=== PATIENT | male | born 1980 | race Caucasian/White ===

== ENCOUNTER → 2019-05-24 | Outpatient (CLI) | payer OTHER ==
--- NOTE | 2019-05-24 13:06 | KCIC ---
LUMBAR SPINE WO CONTRAST History: Low back pain. Radiculopathy. Right leg weakness. Technique: Multiplanar, multi sequential MR imaging was performed of the lumbar spine. Comparison: None Findings: Normal vertebral body height and alignment. No fracture. No pathologic marrow replacing process. Conus terminates at the normal location. No evidence of nerve root clumping. L1-L2: No canal or neuroforaminal narrowing. L2-L3: Mild facet arthropathy. No canal or neuroforaminal narrowing. L3-L4: No canal or neuroforaminal narrowing. Mild facet arthropathy. L4-L5: Small posterior disc bulge. Moderate facet arthropathy. No canal narrowing. No neuroforaminal narrowing. L5-S1: Broad-based posterior disc bulge. Superimposed right foraminal disc protrusion. No canal narrowing. Moderate right and mild left neural foraminal narrowing. Impression: 1. Mild multilevel lumbar spondylosis most prominent L5-S1. 2. Moderate right L5-S1 neural foraminal narrowing. Correlate for radiculopathy. Electronically signed by: Kamaljit Coates DO (05/24/2019 1:03 PM) [email or web address]
== END | disposition home or self-care (01) ==
LOC: KCIC MRI 09:50
PROVIDERS: ATTEND Family Medicine
DX: M47.26 Other spondylosis with radiculopathy, lumbar region (principal); M47.818 Spondylosis without myelopathy or radiculopathy, sacral and sacrococcygeal region; M48.07 Spinal stenosis, lumbosacral region; M51.16 Intervertebral disc disorders with radiculopathy, lumbar region; M53.3 Sacrococcygeal disorders, not elsewhere classified; M46.86 Other specified inflammatory spondylopathies, lumbar region
CPT/HCPCS: 72148

== ENCOUNTER → 2020-07-05 | Outpatient (CLI) | payer OTHER ==
[~2020-07-05] MED LIST: ALPR1TAB6 PO; ASPI325T8 PO; CYCL10TA2 PO; HYDR-2761 PO; NAPR220T70 PO; VENL150C PO
--- NOTE | 2020-07-05 12:54 | PDOC1 ---
INITIAL PAIN CONSULT DATE OF SERVICE: DOS: DATE: 07/05/20 TIME: 12:48 CHIEF COMPLAINT: Chief Complaint: Low back and right lower extremity pain HISTORY OF PRESENT ILLNESS: 40-year-old male presents history of pain since April 2019 on and off for many years though after he fell off of a 17 foot scaffold 2010. Patient reports since that time he had significant pain in the low back right lower extremity but much worse over the past year and a half or so. Patient reports its worse with walking standing changing position especially getting up from a seated position described pain is constant sharp stabbing shooting with some numbness and tingling and radiating pain in the right lower extremity posterior gluteus posterior thigh posterior calf as well as anterior thigh some in the groin and into the front of the right leg as well. Patient which is worse with walking and standing better with sitting or laying down but has been waking her from sleep multiple times at night. Patient reports it is a burning cramping pain low back again to radiating shooting in the right lower extremity. Patient reports it wakes her from sleep at least several times a night does not affect his bowel bladder control does affect his ability to walk he is using a crutch on occasion but is not using any canes walkers or other assistive devices. 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 Reports no loss of motor function but significant fatigability the right lower extremity with ambulation and standing. Patient has done physical therapy is still doing physical therapy exercises also walking daily stretching daily but with only minimal decrease in pain. Patient has tried Flexeril hydrocodone as well as aspirin and Aleve with the hydrocodone aspirin Aleve does decrease the pain but only by about 20% Flexeril was not significantly helpful but did make him sleepy. PAST MEDICAL HISTORY: PMH: Arthritis, hypertension cigarette smoking PREVIOUS SURGERIES: Past Surgical Hx: no Previous surgeries CURRENT MEDICATIONS: Current Meds: Active Scripts Medications Dose Route/Sig Max Daily Dose Days Date Category Alprazolam 1 Mg Tablet 1 Tab PO BID 07/05/20 Reported Effexor Xr (Venlafaxine Hcl) 150 Mg Cap.er.24h 1 Cap PO DAILY 07/05/20 Reported Aleve (Naproxen Sodium) 220 Mg Tablet 440 Mg PO BID 07/05/20 Reported Aspirin 325 Mg Tablet 3 Tab PO TID 07/05/20 Reported Cyclobenzaprine Hcl 10 Mg Tablet 10 Mg PO BID 07/05/20 Reported Hydrocodone-Apap 5-325 (Hydrocodone Bit/Acetaminophen) 1 Tab Tablet 1 Tab PO PRN Q6HRS PRN 07/05/20 Reported ALLERGIES; Allergies: Coded Allergies: No Known Drug Allergies (Unverified , 07/05/20) FAMILY HISTORY: Family Hx: Hypertension SOCIAL HISTORY: Social Hx: Patient drinks alcohol socially is quitting smoking is down to 2 to 3 cigarettes a day from 1 pack a day for 21 years does not use any illegal illicit recreational drugs is single 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 Extraocular movements are intact and symmetrical. Oral cavity: Mucous membranes moist and pink. Dentition is intact. NECK: Shows anterior throat supple without palpable lymphadenopathy noted. Swallow reflex symmetrical. CHEST: Shows normal on inspection. Breath sounds are clear bilaterally, no rale s rhonchi wheezes auscultated. HEART: Shows S1, S2 clear. No murmurs auscultated. ABDOMEN: Soft, nontender, nondistended, obese. No palpable organomegaly is noted. No rebound or guarding demonstrated. BACK: Shows spine grossly in the midline. Normal-appearing cervical lordotic curvature. There is slightly increased thoracic kyphosis, some minor flattening of the lumbar lordotic curvature. Lumbar paraspinous muscles show symmetrical on inspection, on palpation shows some moderate tenderness diffusely throughout the upper, middle and lower distribution of the paraspinous muscles bilaterally and also into the lower thoracic paraspinous musculature, firm and tender, but without specific trigger points, without radiation of pain. The patient has good rotational motion of the lumbar spine, both laterally as well as extension and flexion without significant difficulty. No tenderness over the spinous processes, sacrum or sacroiliac regions. EXTREMITIES: Lower extremities show deep tendon reflexes 2+ in the patellar and tendo calcaneus tendons. Motor exam is 4 on a scale of 5 with right dorsiflexion, extension, quadriceps and hamstring flexion and 5/5 on the left. Peripheral pulses are 1+ posterior tibial. No peripheral edema is noted bilaterally. Lower extremities are warm and dry to touch, equal in color and appearance. Straight leg raise noted to be positive on the right about 40 degrees, left side is negative. Gaenslen's and Lee's maneuvers are negative as well. The patient is able to stand, stand on his toes without significant difficulty or loss of balance walks with a slight favoring gait does appear to favor the right lower extremity does not use any assistive devices with him in the office today. SKIN: Shows warm and dry, good turgor. No edema. No sores, rashes or bruising throughout. IMPRESSION: Impression: 40-year-old male with long history of low back right lower extremity pain worse over the past year and a half in a radicular fashion following a L5-S1 aurora matomal distribution MRI scan lumbar spine as noted Arthritis Hypertension Cigarette smoking Plan: Options were discussed with patient including several medical management physical therapies interventional techniques that he like to pursue interventional techniques. We discussed a lumbar epidural steroid injection using description as well as anatomical model to describe the procedure. Patient will wait for preauthorization with his insurance provider for clearance and we will plan on lumbar epidural steroid injection at the L5-S1 level translaminar approach, once this is obtained. In the meantime patient will continue with physical therapy exercises strengthening stretching on his own and walking daily as he is been performing. She will follow up as scheduled KADY WRIGHT MD Jul 05, 2020 12:54
== END ==
LOC: PNCL 09:32
PROVIDERS: ATTEND Anesthesiology
DX: M54.5 Low back pain (principal); M79.604 Pain in right leg; M19.90 Unspecified osteoarthritis, unspecified site; I10 Essential (primary) hypertension; F17.210 Nicotine dependence, cigarettes, uncomplicated; Z79.899 Other long term (current) drug therapy; Z79.82 Long term (current) use of aspirin; Z82.49 Family history of ischemic heart disease and other diseases of the circulatory system
CPT/HCPCS: G0463

== ENCOUNTER → 2020-09-12 | Outpatient (CLI) | payer OTHER ==
[~2020-09-12] MED LIST changes: +ASPI-630 PO; +IOHEXOL 180 MG/ML 10 ML VIAL. ONE; +LORA-434 PO; +methylPREDNISolone ACETATE 40 MG/ML VIAL. ONE; +methylPREDNISolone ACETATE 80 MG/ML VIAL. ONE
--- NOTE | 2020-09-12 09:53 | PDOC ---
Progress Note - Pain Clinic Date of Service: DOS: DATE: 09/12/20 TIME: 09:50 Diagnosis: Dx: Lumbar radiculopathy with lumbar degenerative disc disease History or Present Illness: HPI: 40-year-old male returns follow-up status post initial evaluation and preauthorization for lumbar epidural steroid injection. Patient is obtained that now would like to proceed. Patient reports still significant pain low back right lower extremity posterior gluteus posterior thigh posterior lateral calf and foot on the right side only. Patient reports is worse with walking standing changing positions better with sitting or laying down generally is not awakening from sleep at night but occasionally will patient reports it is burning and aching in the low back into her groin as well in the right side at times dull and tight and shooting and sharp in the lower extremity with some tingling in the leg as well patient reports is an 8 to 10 months worse in the past week 7 on average 5 its least is a 7 today. Patient reports no new motor or sensory deficits no new bowel or bladder incontinence or other complaints. Physical Exam: VS: Blood pressure is 157/117 pulse 119 respirations 20 temperature 98.0 F height is 6 foot weight is 259 pounds PE: PHYSICAL EXAMINATION: GENERAL: The patient is awake, alert, oriented, appropriate, very pleasant demeanor HEENT: Shows normocephalic, atraumatic. Extraocular movements are intact and symmetrical. Oral cavity: Mucous membranes moist and pink. NECK: Shows anterior throat supple without palpable lymphadenopathy noted. Swallow reflex symmetrical. CHEST: Shows normal on inspection. Breath sounds are clear bilaterally. HEART: Shows S1, S2 clear. No murmurs auscultated. ABDOMEN: Soft, nontender, nondistended, obese. No palpable organomegaly is noted. No rebound or guarding demonstrated. BACK: Shows spine grossly in the midline. Normal-appearing cervical lordotic curvature. There is slightly increased thoracic kyphosis, some minor flattening of the lumbar lordotic curvature. Lumbar paraspinous muscles show symmetrical on inspection, on palpation shows some moderate tenderness diffusely throughout the upper, middle and lower distribution of the paraspinous muscles, but without specific trigger points, without radiation of pain. The patient has good rotational motion of the lumbar spine, both laterally as well as extension and flexion without significant difficulty. No tenderness over the spinous processes, sacrum or sacroiliac regions. EXTREMITIES: Lower extremities show deep tendon reflexes 2+ in the patellar and tendo calcaneus tendons. Motor exam is 4 on a scale of 5 with right dorsiflexion, extension, quadriceps and hamstring flexion and 5/5 on the left. Peripheral pulses are 1+ posterior tibial. No peripheral edema is noted bilaterally. Lower extremities are warm and dry to touch, equal in color and appearance. SKIN: Shows warm and dry, good turgor. No edema. No sores, rashes or bruising throughout. Procedure: Procedure: Options were discussed with the patient. Patient chart reviewed his current medication regimen updated current review of systems updated today as well. We will proceed with a lumbar epidural steroid injection today with fluoroscopic guidance. Risks were discussed including but not limited to: Bleeding, infection, possibility of epidural hematoma and subsequent neurological compromise, dural puncture, headaches, spinal cord and/or nerve damage, side effects of steroid medication, and poor results regarding pain control. Patient understands wished to proceed. Patient will return to clinic in approximate 2 weeks for follow-up was counseled as to return appointment activity level, and side effects to be aware of. Medication Injected: Med Injected: Procedure is lumbar epidural steroid injection under local anesthetic using sterile prep and drape at the L5-S1 level using C-arm fluoroscopic guidance in both AP and lateral views medications injected is 120 mg Depo-Medrol + 10 mL preservative-free normal saline and 2 mL contrast- condition at discharge is stable patient tolerated procedure well had no complications. Condition at Discharge: Condition at Discharge: Condition at discharge stable, patient tolerated procedure well and had no complications. KADY WRIGHT MD Sep 12, 2020 09:53
--- NOTE | 2020-09-13 08:00 | PDOC ---
Progress Note - Pain Clinic Date of Service: DOS: DATE: 09/13/20 TIME: 07:59 Diagnosis: Dx: Addendum for visit September 12, 2020 History or Present Illness: HPI: In addition to patient's lumbar radiculopathy patient has significant complaints of left cervical radiculopathy with pain rating from the base the neck and to the left shoulder anterior posterior deltoid as well as the biceps triceps into the forearm mostly anteriorly and into the hand with numbness and tingling of the thumb and first and second fingers. Patient reports is been going on for several months and has been getting worse with repetitive use of the left upper extremity and has a C5-6 C6-7 dermatomal distribution. Patient reports progressive fatigability in the left upper extremity with repetitive use or we ight lifting reaching over his head as well serving his sleep with the left arm pain. KADY WRIGHT MD Sep 13, 2020 08:00
== END | disposition home or self-care (01) ==
LOC: PNCL 08:59
PROVIDERS: ATTEND Anesthesiology
DX: M51.16 Intervertebral disc disorders with radiculopathy, lumbar region (principal); Z79.82 Long term (current) use of aspirin; Z79.899 Other long term (current) drug therapy; Z98.890 Other specified postprocedural states
CPT/HCPCS: 62323; J1030; J1040; Q9965